=== PATIENT | male | born 1965 | race African-American/Black ===

== ENCOUNTER 2021-05-22 09:07 | Emergency (ER) | payer SELFPAY ==
[2021-05-22] MEDS ORDERED: Triamcinolone 40 MG/ML VIAL ONE (09:41)
== END 2021-05-22 10:03 | disposition home or self-care (01) ==
LOC: BURERS 09:07
DX: L23.7 Allergic contact dermatitis due to plants, except food (principal); R03.0 Elevated blood-pressure reading, without diagnosis of hypertension; F17.210 Nicotine dependence, cigarettes, uncomplicated
CPT/HCPCS: 96372; 99283; J3301

== ENCOUNTER 2021-07-15 11:49 | Emergency (ER) | payer SELFPAY ==
[2021-07-15] MEDS ORDERED: Dexamethasone 10 MG/ML VIAL ONE (12:48)
== END 2021-07-15 12:55 | disposition home or self-care (01) ==
LOC: BURERS 11:49
DX: L30.9 Dermatitis, unspecified (principal); F17.210 Nicotine dependence, cigarettes, uncomplicated
CPT/HCPCS: 96372; 99282; J1100

== ENCOUNTER 2021-07-24 11:26 | Emergency (ER) | payer SELFPAY ==
[2021-07-24] MEDS ORDERED: methylPREDNISolone Sod Succ/PF 125 MG/2 ML VIAL ONE (11:58)
== END 2021-07-24 12:10 | disposition home or self-care (01) ==
LOC: BURERS 11:26
DX: L25.9 Unspecified contact dermatitis, unspecified cause (principal); L03.113 Cellulitis of right upper limb; F17.210 Nicotine dependence, cigarettes, uncomplicated
CPT/HCPCS: 96372; 99283; J2930

== ENCOUNTER 2021-08-30 12:11 | Emergency (ER) | payer SELFPAY ==
[2021-08-30] MEDS ORDERED: methylPREDNISolone Sod Succ/PF 125 MG/2 ML VIAL ONE (12:47)
== END 2021-08-30 13:08 | disposition home or self-care (01) ==
LOC: BURERS 12:11
DX: L30.9 Dermatitis, unspecified (principal); F17.210 Nicotine dependence, cigarettes, uncomplicated
CPT/HCPCS: 96372; 99282; J2930

== ENCOUNTER 2021-12-23 09:17 | Emergency (ER) | payer OTHER, SELFPAY ==
[2021-12-23] MEDS ORDERED: predniSONE 20 MG TAB ONE ×2 (09:42)
[2021-12-23] MEDS ORDERED: Hydrocortisone 1% Cream 30 GM TUBE TOP SCH (10:00)
== END 2021-12-23 09:55 | disposition home or self-care (01) ==
LOC: BURERS 09:17
DX: L30.9 Dermatitis, unspecified (principal); K02.9 Dental caries, unspecified; F17.210 Nicotine dependence, cigarettes, uncomplicated
CPT/HCPCS: 99282; J7512

== ENCOUNTER 2022-01-07 11:36 | Emergency (ER) | payer SELFPAY ==
[2022-01-07] MEDS ORDERED: predniSONE 20 MG TAB ONE (11:54)
== END 2022-01-07 11:59 | disposition home or self-care (01) ==
LOC: BURERS 11:36
DX: L30.9 Dermatitis, unspecified (principal)
CPT/HCPCS: 99282; J7512

== ENCOUNTER 2022-04-29 08:37 | Emergency (ER) | payer OTHER, SELFPAY | END 2022-04-29 09:29 | disposition home or self-care (01) | LOC: BURERS 08:37 | DX: L03.312 Cellulitis of back [any part except buttock and flank] (principal); L30.9 Dermatitis, unspecified; F17.210 Nicotine dependence, cigarettes, uncomplicated | CPT/HCPCS: 99282 ==